=== PATIENT | female | born 1995 | race African-American/Black ===

== ENCOUNTER 2016-11-18 22:25 | Emergency (ER) | payer SELFPAY ==
[~2016-11-18] VITALS: Ht 172.7 cm; Wt 71.0 kg
[2016-11-19 00:40] VITALS: BP 132/71
== END 2016-11-19 00:42 | disposition home or self-care (01) ==
LOC: EMS 22:27
DX: S61.512A Laceration without foreign body of left wrist, initial encounter (principal); F32.9 Major depressive disorder, single episode, unspecified; X78.9XXA Intentional self-harm by unspecified sharp object, initial encounter; Y93.89 Activity, other specified; Y92.89 Other specified places as the place of occurrence of the external cause; Y99.8 Other external cause status
CPT/HCPCS: 99285